=== PATIENT | female | born 1970 | race Caucasian/White ===

== ENCOUNTER → 2019-12-08 | Outpatient (CLI) | payer OTHER ==
--- NOTE | 2019-12-13 10:33 | SLEEPCENT ---
DATE OF STUDY: 12/08/2019 ORDERING PROVIDER: Susan Dorantes MD Nocturnal polysomnography was performed for evaluation of sleep physiology in this patient with a history of excessive somnolence and nonrestorative sleep who has comorbidity of hiatal hernia and gastroesophageal reflux. 8 hours and 47 minutes of data were reviewed. There were 401 minutes of sleep identified. Sleep latency was mildly prolonged at 26 minutes. Rapid eye movement (REM) latency was more so prolonged at 317 minutes. Sleep architecture showed significant fragmentation. Overall sleep efficiency was 82.9%. The patient's electrocardiogram showed a sinus rhythm with an average heart rate of 76 beats per minute. Rate variability was noted surrounding respiratory events. Rate ranged 50-100. Electroencephalogram (EEG) showed normal waveforms for awake and sleep. There were 160 respiratory events identified of 10 seconds in duration or greater for an apnea-hypopnea index of 23.9. The events were primarily obstructive, not exclusive to sleep stage nor body posture. Arousals from respiratory events occurred 10.9 times per hour. There was also some activity in the limb electromyelogram (EMG) leads throughout the study with the limb movement arousal index of 12.7. IMPRESSIONS: 1. Obstructive sleep apnea syndrome (G47.33). Apnea-hypopnea index 23.9. 2. Possible periodic limb movement disorder (G47.61). Limb movement arousal index 12.7. RECOMMENDATIONS: The patient should be encouraged to return to the sleep disorder center for pressure therapy. In the interim, alcohol and sedative avoidance should be practiced and caution exercised during the operation of motor vehicles. Pending response to pressure therapy, interventions to reduce the frequency of arousal from limb activity may also be helpful.
== END ==
LOC: M SLEEP 19:45
PROVIDERS: ATTEND Internal Medicine Pulmonary Disease
DX: G47.33 Obstructive sleep apnea (adult) (pediatric) (principal); G47.61 Periodic limb movement disorder

== ENCOUNTER → 2020-01-12 | Outpatient (CLI) | payer OTHER ==
--- NOTE | 2020-01-16 10:47 | SLEEPCENT ---
DATE OF PROCEDURE: 01/12/2020 ORDERED BY: Dr. Dorantes Nocturnal polysomnography was performed for the titration of pressure therapy in this patient with obstructive sleep apnea syndrome and apnea-hypopnea index of 23.9. For testing, a [employer]Med Quattro full face mask of medium size was used and 4 cm of water pressure were applied to the circuit and the lights were extinguished. 8 hours and 1 minute of data were reviewed. There were 317.5 minutes of sleep identified. Sleep latency was prolonged at 31 minutes. Rapid eye movement (REM) latency was prolonged at 284.5 minutes. Sleep architecture improved with optimal pressure therapy and there were 2 REM cycles noted. Overall sleep efficiency was 66.6%. The patient's electrocardiogram showed a sinus rhythm with an average heart rate of 66 beats per minute. Electroencephalogram (EEG) showed normal waveforms for awake and sleep. Respiratory events were found best palliated with CPAP at a pressure of +12. Some limb activity was appreciated during the study. Limb movement arousal index on this occasion was 15.5. IMPRESSION: 1. Obstructive sleep apnea syndrome (G47.33). 2. Possible periodic limb movement disorder (G47.61). Limb movement arousal index 15.5. RECOMMENDATION: Initiation of pressure therapy at 12 cm of water would be appropriate for this patient to address this patient's respiratory issues. Should sleep symptoms persist, interventions to reduce the frequency of arousal from limb activity may be helpful.
== END ==
LOC: M SLEEP 19:39
PROVIDERS: ATTEND Internal Medicine Pulmonary Disease
DX: G47.33 Obstructive sleep apnea (adult) (pediatric) (principal); G47.61 Periodic limb movement disorder

== ENCOUNTER → 2023-10-31 | Outpatient (CLI) | payer OTHER | LOC: M RAD 14:43 | PROVIDERS: ATTEND Family Medicine | DX: M23.91 Unspecified internal derangement of right knee (principal) ==